=== PATIENT | female | born 1995 | race Caucasian/White ===

== ENCOUNTER 2016-08-26 22:32 | Inpatient (IN) | payer SELFPAY ==
[~2016-08-26] VITALS: Ht 162.6 cm; Wt 85.2 kg
[~2016-08-26 22:32] MED LIST: PREN1TAB49 PO
[2016-08-26 23:06] VITALS: Ht 162.6 cm; Wt 85.2 kg
[2016-08-26 23:09] VITALS: BP 118/68; PULSE 88; RESP 18
[2016-08-26] MEDS ORDERED: LACTATED RINGER'S 1,000 ML IV ONE (23:30)
--- NOTE | 2016-08-26 23:58 | HP ---
Date/Time of Note Date/Time of Note DATE: 08/26/16 TIME: 23:57 OB - History Hx of Present Free Text/Dictation @ 38+3 wks GA with occasional CTXs in intermediate Currently No physician No LOF +FM No VB : 3 Para: 1 Care: Limited Care Obstetrical Complications: None Medical Complications: None Past Family/Social History * Past Medical, Surgical, Family and Obstetric Histories reviewed from chart. OB Admission Exam Vital Signs Vital Signs Vital Signs Date Time Temp Pulse Resp B/P Pulse Ox O2 Delivery O2 Flow Rate FiO2 08/26/16 23:09 98.3 88 18 118/68 Room Air Physical Exam Abdomen: WNL Extremities: Normal Cervical Dilatation: 1cm Effacement: 25% Station: Ballotable Membranes: Intact Heart Rate: 140's Accelerations: Accelerations Present Decelerations: No Decelerations Varibility: Moderate Contractions on Admission: >10 Minutes Apart OB Assessment/Plan Reason for admission: observation Plan: Expectant Management ISHAN RODRIGUEZ M.D. Aug 26, 2016 23:58
--- NOTE | 2016-08-27 00:09 | RADRPT ---
PROCEDURE: OB ultrasound for biophysical profile CLINICAL INDICATION: Decreased motion. TECHNIQUE: Multiple sonographic images of the gravid uterus performed. The images were reviewed on a PACS workstation. COMPARISON: None FINDINGS: A single live intrauterine is identified with heart rate of 141 bpm. Fet us is in a cephalic presentation. Placenta is located anterior. Biophysical profile: breathing movement = 2/2 tone = 2/2 motion = 2/2 ROSALINE = 2/2 ROSALINE = 10.2 cm. IMPRESSION: 1. Single live intrauterine gestation. 2. Biophysical profile = 8/8. 3. ROSALINE = 10.2 cm. RPTAT: HMVK .Mike Matamoros MD, Date Time Electronically viewed and signed by .Mike Matamoros MD, on 08/27/2016 00:09 .K/
--- NOTE | 2016-08-27 00:16 | RADRPT ---
PROCEDURE: US OB. CLINICAL INDICATION: Contractions. TECHNIQUE: Multiple sonographic images of the pelvis were obtained. Transabdominal imaging only w as performed. The images were reviewed on a PACS workstation. COMPARISON: None. FINDINGS: Single live intrauterine is identified. Cardiac activity is present with 146 beats per mi nute. There is a vertex presentation. Measurements: BPD = 34 weeks 5 days. HC = 37 weeks 0 days AC = 40 weeks 2 days. FL = 38 weeks 6 days. Estimated gestational age of approximately 37 weeks 5 days The estimated date of delivery is 09/11/2016. The EFW = 3608 g which is at the 75th percentile. Limited evaluation of anatomy there is a slightly elevated ratio of the femur length to bipari etal diameter into the head circumference. The placenta is anterior. IMPRESSION: Single live intrauterine gestation of approximately 37 weeks 3 days. Ratio of the femur length to t he by probable diameter head circumference is slightly increased and IUGR cannot be excluded. RPTAT: HMVK .Mike Matamoros MD, Date Time Electronically viewed and signed by .Mike Matamoros MD, on 08/27/2016 00:16 .K/
[2016-08-27] MEDS ORDERED: CARBOPROST 250 MCG INJ IM PRN (01:00)
[2016-08-27] MEDS ORDERED: OXYTOCIN 30 UNITS/LR 500 ML IV PRN (01:00)
[2016-08-27] MEDS ORDERED: MISOPROSTOL 200 MCG TAB PR PRN (01:00)
[2016-08-27] MEDS ORDERED: METHYLERGONOVINE 0.2 MG INJ IM PRN (01:00)
--- NOTE | 2016-08-27 01:50 | TRIAGE ---
OB Triage Datetime Report Generated by CPN: 08/27/2016 01:50 Datetime: 08/27/2016 01:32 Assessment Type: Admission Assessment Maternal Assessment Level of Consciousness: Fully Conscious DTR's/Clonus: DTRs 2+; No Clonus Headache: Denies Blurred Vision: No Respiratory Effort: Unlabored Breath Sounds, Left: Clear and Equal Breath Sounds, Right: Clear and Equal Nausea/Vomiting: Denies RUQ Epigastric Pain: Denies Lower Extremities Edema: Bilateral Lower Extremities Degree: 2+ Upper Extremities Edema: None Degree: None Facial Edema: None Fall Risk Assessment History of Falling: (0) No Secondary Diagnosis: (0) No Ambulatory Aid: (0) Bedrest/Nurse Assist IV Therapy: (0) No Gait: (0) Normal/Bedrest/Immobile Mental Status: (0) Oriented to Own Ability Fall Score: 0 Fall Risk Score Definition: No Risk: No action required Pain Assessment Pain Scale: 4 Pain Presence: Intermittent Pain Type: Contraction Pain Goal: 0 Datetime: 08/27/2016 01:29 Time of Arrival: 08/27/2016 01:29 EGA: 38.4 Arrived By: Ambulatory Arrived From: Home Chief Complaint: DECREASED MOVEMENT, CONTRACTIONS Movement: Decreased Contractions: Denies/Absent Rupture of Membranes: Denies Vaginal Bleeding: None Vaginal Discharge: Denies Recent Sexual Intercouse: Denies Abdominal Trauma: Not Applicable Patient Complaints: Contractions; Cramping Time Provider Notified: 08/26/2016 23:05 Provider Notified: JENNIFER Initial Plan: BPP, EFW, SVE Datetime: 08/27/2016 00:30 Labor Evaluation Frequency: IRREGULAR Monitor Mode: External Duration (sec)2399: 40-60 Quality: Mild Pattern: Normal: <= 5 Contractions in 10 Minutes Resting Tone [place]: Relaxed Heart Rate FHR Baseline Rate: 130 Monitor Mode: External US Variability: Moderate 6-25 bpm Accelerations: 15X15 Decelerations: None Category: Category I Datetime: 08/26/2016 23:39 Vaginal Exam Dilatation (cms): 1.0 Effacement (%): 30 Station: -3 Exam By: BE Datetime: 08/26/2016 23:30 Labor Evaluation Frequency: 6-10 Monitor Mode: External Duration (sec)2399: 50-80 Quality: Mild Pattern: Normal: <= 5 Contractions in 10 Minutes Resting Tone [place]: Relaxed Heart Rate FHR Baseline Rate: 130 Monitor Mode: External US Variability: Moderate 6-25 bpm Accelerations: 15X15 Decelerations: None Category: Category I Datetime: 08/26/2016 22:55 Pain Assessment Pain Scale: 5 Pain Presence: Intermittent Pain Type: Cramping; Contraction Pain Location: Abdomen Datetime: 08/26/2016 22:50 Stage of : OB Triage Assessment Type: Triage Maternal Assessment Level of Consciousness: Fully Conscious DTR's/Clonus: DTRs 2+; No Clonus Headache: Denies Blurred Vision: No Respiratory Effort: Unlabored; Regular Rhythm; Equal Expansion Breath Sounds, Left: Clear and Equal Breath Sounds, Right: Clear and Equal Nausea/Vomiting: Denies RUQ Epigastric Pain: Denies Lower Extremities Edema: None Degree: None Upper Extremities Edema: None Degree: None Facial Edema: None Fall Risk Assessment History of Falling: (0) No Secondary Diagnosis: (0) No Ambulatory Aid: (0) Bedrest/Nurse Assist IV Therapy: (0) No Gait: (0) Normal/Bedrest/Immobile Mental Status: (0) Oriented to Own Ability Fall Score: 0 Fall Risk Score Definition: No Risk: No action required Monitor Mode: External Monitor Mode: External US
[2016-08-27 02:41] LABS: HAAIG REFLEX REFLEX FILED
[2016-08-27 02:51] LABS: BASOPHILS % 0.1 % (0.0-2.0); EOSINOPHILS % 0.4 % (0.0-7.0); HEMATOCRIT 38.7 % (37.0-47.0); LYMPHOCYTES # 1.8 10^3/ul (0.8-2.9); LYMPHOCYTES % 17.2 % (15.0-51.0); MEAN CORPUSCULAR HEMOGLOBIN 31.1 pg (29.0-33.0); MEAN CORPUSCULAR HGB CONC 33.5 g/dl (32.0-37.0); MEAN CORPUSCULAR VOLUME 92.8 fl (82.0-101.0); MEAN PLATELET VOLUME 9.6 fl (7.4-10.4); MONOCYTE # 0.6 10^3/ul (0.3-0.9); MONOCYTES % 6.1 % (0.0-11.0); NEUTROPHIL # 7.9 10^3/ul (1.6-7.5); NEUTROPHILS % 76.2 % (39.0-77.0); PLATELET COUNT 231 10^3/UL (140-440); RED BLOOD COUNT 4.17 10^6/ul (4.20-5.40); RED CELL DISTRIBUTION WIDTH 13.3 % (11.5-14.5); UNCORRECTED WBC 10.4 10^3/ul (4.8-10.8); WHITE BLOOD COUNT 10.4 10^3/ul (4.8-10.8)
[2016-08-27 02:53] LABS: INR 0.89; PT RATIO 0.9
[2016-08-27 02:54] LABS: PARTIAL THROMBOPLASTIN TIME 25.3 Sec (25.0-35.0)
[2016-08-27 02:56] LABS: CONDITION 1
[2016-08-27] MEDS ORDERED: LACTATED RINGER'S 1,000 ML IV SCH (03:44)
[2016-08-27] MEDS ORDERED: CEFAZOLIN 2 GM/50 ML (PMX) 50 ML IV SCH (04:00)
[2016-08-27] MEDS ORDERED: OXYTOCIN 30 UNITS/LR 500 ML IV SCH (04:00)
[2016-08-27 07:04] LABS: HEPATITIS B CORE ANTIBODY NEGATIVE (NEGATIVE)
--- NOTE | 2016-08-27 08:38 | HP ---
Date/Time of Note Date/Time of Note DATE: 08/27/16 TIME: 08:25 OB - History Hx of Present Free Text/Dictation Levon is a 21 years old TAB x 2 with history of section x 1 and IUP at 38 weeks and 4 days and are at [facility], presented with contractions. she had been observed overnight and noted her contractions resolved. She was comfortable and had rare occasinal contractions and did not show any evidence of labor. she was therefore discharged and scheduled for repeat section at 39 weeks on Thursday08/30/2016. Patient has limited care. Her NIURKA:09/06/2016 She reported history of section due to macrosomia. Her GDM testing in current negative and HbA1c : 5.7 which is WNL. Review of her records shows that she has been positive for Hepatitis C Antibody. 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 she reports this history since age 14 even prior to using IV drugs. Her RIBA test ordered and currently pending. Her Hepatitis C viral load was negative on 01/2016. She reports she had been smoked cigarettes prior to and stopped since she conceived she had been in [facility] due to violation probation, but has been released for the past 4 days. Had care at [facility]. Review of her labs shows that she has been treated for chlamydia x 2 in current . She had all her care in [facility] since 6 weeks . GDM testing negative. Her Ultrasound today shows EFW: 3608. 75 % , BPP 8/8. ROSALINE: 10.2 EGA: 37 weeks and 5 days with correlate with her NIURKA Estimated Due Date: Sep 06, 2016 : 3 Para: 1 Care: Good Care Obstetrical Complications: Other (History of section due to macrosomia. Postive Hep C antibody.) Past Family/Social History * Past Medical, Surgical, Family and Obstetric Histories reviewed from chart. Blood Type: O+ Rubella: not immune RPR/VDRL: Negative GBS Status: Negative HBsAG: Negative OB Admission Exam Vital Signs Vital Signs Vital Signs Date Time Temp Pulse Resp B/P Pulse Ox O2 Delivery O2 Flow Rate FiO2 08/26/16 23:09 98.3 88 18 118/68 Room Air Physical Exam HEENT: WNL Heart: Rhythm Normal Lungs: Clear Abdomen: WNL Extremities: Normal Reflexes: Normal Cervical Dilatation: None Effacement: 0% Station: -3 Membranes: Intact Heart Rate: 130's Accelerations: Accelerations Present Decelerations: No Decelerations Varibility: Moderate Contractions on Admission: >10 Minutes Apart Last 72 hours Lab Results CBC & BMP 08/27/16 01:18 OB Assessment/Plan Other Assessment: IUP at 38 weeks and 4 days History of section x 1 Currently not in labor GBS negative No evidence of PROM or labor History of Heptatis C, RIBA test pending., prior Hep C Antibody in 01/2016 Negative History of chlamydia x 2, s/.p treatment, Urine Gc/ Chlamydia ordered. pending Will be discharged home To schedule at 39 weeks for repeat section risks and benefits of section including risk for infection, bleeding, damage to adjacent structures including bowel and bladder and risk of damge to fetus as well as risk for blood transfusion including Blood borne infection, including HIV, hepatitis B and C and transfusion reactions discussed with the patient, Patient desires to proceed with repeat section. Recommended Tdap as well as Hepatits B and A vaccine, Desires to receive them after delivery Hepatitis Labs ordered for evaluation of liver function as well as Repeat Hepatitis C labs all questions were answered to the patient's best satisfaction. BLESSING RECINOS MD Aug 27, 2016 08:38
[2016-08-27 10:51] LABS: BARBITURATES NEGATIVE (NEGATIVE); BENZODIAZEPINES NEGATIVE (NEGATIVE); CANNABINOIDS NEGATIVE (NEGATIVE); COCAINE NEGATIVE (NEGATIVE); OPIATES NEGATIVE (NEGATIVE)
--- NOTE | 2016-09-10 20:08 | DS ---
Date/Time of Note Date/Time of Note DATE: 09/10/16 TIME: 20:06 Discharge Summary Admission/Discharge Info Admit Date/Time Aug 26, 2016 at 23:45 Discharge Date/Time Aug 27, 2016 at 10:00 Final Diagnosis False labor Patient Condition: Good Consults Obstetrics Procedures Observation Hx of Present Illness Levon is a 21 years old TAB x 2 with history of section x 1 and IUP at 38 weeks and 4 days and are at [facility], presented with contractions. she had been observed overnight and noted her contractions resolved. She was comfortable and had rare occasional contractions and did not show any evidence of labor. she was therefore discharged and scheduled for repeat section at 39 weeks on Thursday08/30/2016. Patient has limited care. Her NIURKA:09/06/2016 She reported history of section due to macrosomia. Her GDM testing in current negative and HbA1c : 5.7 which is WNL. Review of her records shows that she has been positive for Hepatitis C Antibody. 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 she reports this history since age 14 even prior to using IV drugs. Her RIBA test ordered and currently pending. Her Hepatitis C viral load was negative on 01/2016. She reports she had been smoked cigarettes prior to and stopped since she conceived she had been in senior living due to violation probation, but has been released for the past 4 days. Had care at [facility]. Review of her labs shows that she has been treated for chlamydia x 2 in current . She had all her care in [facility] since 6 weeks . GDM testing negative. Her Ultrasound today shows EFW: 3608. 75 % , BPP 8/8. ROSALINE: 10.2 EGA: 37 weeks and 5 days with correlate with her NIURKA Hospital Course Unremarkable Home Meds No Active Prescriptions or Reported Meds Follow-up Plan In 3 days scheduled for repeat section at 39 weeks BLESSING RECINOS MD Sep 10, 2016 20:08
== END 2016-08-27 10:00 | disposition home or self-care (01) | DRG 782 ==
LOC: OBT 22:32 → L-D 22:33 → UNDOADMIN 23:45 → OBT 23:45 → L-D 08-27 00:35 → UNDODISIN 08-27 10:00
PROVIDERS: ADMIT Obstetrics & Gynecology; ATTEND Obstetrics & Gynecology
DX: O34.219 Maternal care for unspecified type scar from previous cesarean delivery (principal); Z86.19 Personal history of other infectious and parasitic diseases; Z3A.38 38 weeks gestation of pregnancy; Z87.891 Personal history of nicotine dependence
CPT/HCPCS: 76815; 76818; 80307; 83036; 85025; 85610; 85730; 86592; 86704; 86709; 86803; 86850; 86900; 86901; 87340; 87591; G0463; J7120

== ENCOUNTER 2016-08-29 10:37 | Inpatient (IN) | payer SELFPAY ==
[~2016-08-29] VITALS: Ht 162.6 cm; Wt 85.6 kg
[2016-08-29 10:59] VITALS: Ht 162.6 cm; Wt 85.6 kg
[2016-08-29] MEDS ORDERED: MISOPROSTOL 200 MCG TAB PR PRN ×2 (11:30→19:00)
[2016-08-29] MEDS ORDERED: CARBOPROST 250 MCG INJ IM PRN ×2 (11:30→19:00)
[2016-08-29] MEDS ORDERED: CEFAZOLIN 2 GM/50 ML (PMX) 50 ML IV SCH (11:30)
[2016-08-29] MEDS ORDERED: METHYLERGONOVINE 0.2 MG INJ IM PRN ×2 (11:30→19:00)
[2016-08-29] MEDS ORDERED: OXYTOCIN 30 UNITS/LR 500 ML IV SCH (11:30)
[2016-08-29] MEDS ORDERED: OXYTOCIN 30 UNITS/LR 500 ML IV PRN ×2 (11:30→19:00)
[2016-08-29] MEDS: LACTATED RINGER'S 1,000 ML IV SCH ×3 (11:46→21:09)
[2016-08-29 12:06] LABS: BASOPHILS % 0.3 % (0.0-2.0); EOSINOPHILS % 0.2 % (0.0-7.0); HEMATOCRIT 38.3 % (37.0-47.0); HEMOGLOBIN 12.7 g/dl (12.0-16.0); LYMPHOCYTES # 1.3 10^3/ul (0.8-2.9); MEAN CORPUSCULAR HEMOGLOBIN 31.3 pg (29.0-33.0); MEAN CORPUSCULAR HGB CONC 33.1 g/dl (32.0-37.0); MEAN CORPUSCULAR VOLUME 94.3 fl (82.0-101.0); MONOCYTE # 0.4 10^3/ul (0.3-0.9); MONOCYTES % 4.6 % (0.0-11.0); NEUTROPHIL # 7.6 10^3/ul (1.6-7.5); NEUTROPHILS % 80.9 % (39.0-77.0); PLATELET COUNT 224 10^3/UL (140-440); RED BLOOD COUNT 4.06 10^6/ul (4.20-5.40); RED CELL DISTRIBUTION WIDTH 13.6 % (11.5-14.5); UNCORRECTED WBC 9.4 10^3/ul (4.8-10.8); WHITE BLOOD COUNT 9.4 10^3/ul (4.8-10.8)
[2016-08-29 12:19] LABS: CONDITION 1
[2016-08-29 12:22] LABS: INR 0.89; PARTIAL THROMBOPLASTIN TIME 27.7 Sec (25.0-35.0); PT RATIO 0.9
[2016-08-29 12:44] LABS: BARBITURATES Negative (NEGATIVE); BENZODIAZEPINES Negative (NEGATIVE); CANNABINOIDS Negative (NEGATIVE); OPIATES Negative (NEGATIVE)
[2016-08-29 13:11] LABS: COCAINE Negative (NEGATIVE)
[2016-08-29] MEDS ORDERED: CITRIC ACID/NA CITRATE 30 ML CUP ONE (14:51)
[2016-08-29] MEDS ORDERED: morphine SULFATE/PF (10 MG/10 ML) INJ ONE (14:52)
[2016-08-29] MEDS ORDERED: FENTAnyl 50 MCG/ML VIAL ONE (14:52)
[2016-08-29] MEDS ORDERED: EPHEDrine SULFATE 50 MG/5 ML SYG ONE (15:04)
[2016-08-29] MEDS ORDERED: HYDROmorphONE 1 MG/ML SYG IV PRN ×3 (15:30)
[2016-08-29] MEDS ORDERED: ZOLPIDEM 5 MG TAB PO PRN (15:30)
[2016-08-29] MEDS ORDERED: NALOXONE (0.4 MG/ML) INJ IV PRN ×2 (15:30→21:30)
[2016-08-29] MEDS ORDERED: ONDANSETRON 4 MG INJ IV PRN (15:30)
--- NOTE | 2016-08-29 15:49 | HP ---
Date/Time of Note Date/Time of Note DATE: 08/29/16 TIME: 15:48 OB - History Hx of Present Free Text/Dictation 21 yo @38+6 wks GA ,poor care ,in labor Previous c/section : 3 Para: 1 Care: Good Care Ultrasounds: Normal mid trimester US Obstetrical Complications: None Medical Complications: None Past Family/Social History * Past Medical, Surgical, Family and Obstetric Histories reviewed from chart. OB Admission Exam Physical Exam Abdomen: WNL Extremities: Normal Reflexes: Normal Cervical Dilatation: 2cm Effacement: 75% Station: -1 Membranes: Intact Heart Rate: 140's Accelerations: Accelerations Present Decelerations: No Decelerations Varibility: Moderate Contractions on Admission: 6-10 Minutes Apart Last 72 hours Lab Results CBC & BMP 08/29/16 11:45 OB Assessment/Plan Reason for admission: section Plan: Section Other plan: 21 yo @38+6 wks GA ,poor care ,in labor Previous c/section ISHAN RODRIGUEZ M.D. Aug 29, 2016 15:49
[2016-08-29 16:32] LABS: CANNABINOIDS Negative (NEGATIVE)
[2016-08-29 16:41] LABS: BARBITURATES Negative (NEGATIVE); BENZODIAZEPINES Negative (NEGATIVE); COCAINE Negative (NEGATIVE); OPIATES Negative (NEGATIVE)
[2016-08-29 19:00] VITALS: BP 114/69; PULSE 99; RESP 18
[2016-08-29] MEDS ORDERED: NA PHOSPHATE/BIPHOS 133 ML ENEMA PR PRN (19:00)
[2016-08-29 19:30] VITALS: BP 108/57; PULSE 80; RESP 19
[2016-08-29 20:00] VITALS: BP 110/69; PULSE 62; RESP 20
[2016-08-29 21:00] VITALS: BP 105/63; PULSE 65; RESP 19
[2016-08-29] MEDS: SENNA/DOCUSATE NA (8.6MG/50MG) TAB PO SCH (21:09)
[2016-08-29] MEDS ORDERED: DIPHENHYDRAMINE 50 MG INJ IM PRN (21:30)
[2016-08-29] MEDS ORDERED: DIPHENHYDRAMINE 50 MG INJ IV PRN (21:30)
[2016-08-29] MEDS: DIPHENHYDRAMINE 50 MG INJ IV PRN (21:33)
[2016-08-30] MEDS: DIPHENHYDRAMINE 50 MG INJ IV PRN (03:30)
[2016-08-30 04:00] VITALS: BP 106/63; PULSE 89; RESP 19
[2016-08-30] MEDS: LACTATED RINGER'S 1,000 ML IV SCH ×3 (04:56→18:10)
[2016-08-30 07:17] LABS: BASOPHILS % 0.3 % (0.0-2.0); EOSINOPHILS % 0.4 % (0.0-7.0); HEMATOCRIT 32.6 % (37.0-47.0); HEMOGLOBIN 10.9 g/dl (12.0-16.0); LYMPHOCYTES # 1.4 10^3/ul (0.8-2.9); LYMPHOCYTES % 13.8 % (15.0-51.0); MEAN CORPUSCULAR HEMOGLOBIN 31.9 pg (29.0-33.0); MEAN CORPUSCULAR HGB CONC 33.6 g/dl (32.0-37.0); MEAN CORPUSCULAR VOLUME 94.9 fl (82.0-101.0); MONOCYTE # 0.5 10^3/ul (0.3-0.9); NEUTROPHIL # 8.1 10^3/ul (1.6-7.5); NEUTROPHILS % 80.5 % (39.0-77.0); PLATELET COUNT 159 10^3/UL (140-440); RED BLOOD COUNT 3.43 10^6/ul (4.20-5.40); RED CELL DISTRIBUTION WIDTH 13.9 % (11.5-14.5)
[2016-08-30 07:40] LABS: CONDITION 1
[2016-08-30] MEDS: SENNA/DOCUSATE NA (8.6MG/50MG) TAB PO SCH ×2 (09:00→21:38)
[2016-08-30 09:35] VITALS: BP 98/52; PULSE 67; RESP 18
--- NOTE | 2016-08-30 10:24 | PN ---
Date/Time of Note Date/Time of Note DATE: 08/30/16 TIME: 10:18 OB Subjective Subjective Subjective 08-30-2016 Progress note for post day 1; Patient is doing fairly well, mostly sleepy No complaint. Ambulatory She is afebrile Abdomen is soft , Fundus is firm Moderate amount of lochia Breasts are soft, Nipples are intact No calf tenderness. Incision is healing well. Not breast feeding the new born. New born is doing well. Laboratory Tests Test 08/29/16 11:45 08/29/16 15:45 08/30/16 06:39 Activated Partial Thromboplast Time 27.7Sec Basophils # 0.010^3/ul 0.010^3/ul Basophils % 0.3% 0.3% Eosinophils # 0.010^3/ul 0.010^3/ul Eosinophils % 0.2% 0.4% Hematocrit 38.3% 32.6% Hemoglobin 12.7g/dl 10.9g/dl INR International Normalized Ratio 0.89 Lymphocytes # 1.310^3/ul 1.410^3/ul Lymphocytes % 14.0% 13.8% Mean Corpuscular Hemoglobin 31.3pg 31.9pg Mean Corpuscular Hemoglobin Concent 33.1g/dl 33.6g/dl Mean Corpuscular Volume 94.3fl 94.9fl Mean Platelet Volume 9.0fl 9.0fl Monocytes # 0.410^3/ul 0.510^3/ul Monocytes % 4.6% 5.0% Neutrophils # 7.610^3/ul 8.110^3/ul Neutrophils % 80.9% 80.5% Nucleated Red Blood Cells # 0.010^3/ul 0.010^3/ul Nucleated Red Blood Cells % 0.0/100WBC 0.0/100WBC Platelet Count 09863^3/UL 28748^3/UL Prothrombin Time 12.0Sec Prothrombin Time Ratio 0.9 Rapid Plasma Reagin NONREACTIVE Red Blood Count 4.0610^6/ul 3.4310^6/ul Red Cell Distribution Width 13.6% 13.9% Urine Amphetamines Screen Negative Positive Urine Barbiturates Negative Negative Urine Benzodiazepines Screen Negative Negative Urine Cannabinoids Negative Negative Urine Cocaine Screen Negative Negative Urine Opiates Screen Negative Negative White Blood Count 9.410^3/ul 10.010^3/ul Current Medications Medications (Trade) Dose Ordered Sig/Dilan Route PRN Reason Start Time Stop Time Status Last Admin Dose Admin Lactated Ringer's 1,000 ml @ 125 mls/hr Q8H IV 08/29/16 11:23 08/29/16 19:00 DC 08/29/16 14:26 Cefazolin Sodium/ Dextrose 50 ml @ 100 mls/hr ONCE IV 08/29/16 11:30 08/29/16 19:00 DC Oxytocin/Lactated Ringer's 500 ml @ 125 mls/hr ONCE IV 08/29/16 11:30 08/29/16 19:00 DC 08/29/16 16:19 Oxytocin/Lactated Ringer's 500 ml @ 0 mls/hr ONCE PRN IV For Hemorrhage Management 08/29/16 11:30 08/29/16 19:00 DC Methylergonovine Maleate (Methergine) 0.2 mg ONCE PRN IM VAGINAL BLEEDING 08/29/16 11:30 08/29/16 19:01 DC Carboprost Tromethamine (Hemabate) 250 mcg ONCE PRN IM VAGINAL BLEEDING 08/29/16 11:30 08/29/16 19:01 DC Misoprostol (Cytotec) 1,000 mcg ONCE PRN [place] VAGINAL BLEEDING 08/29/16 11:30 08/29/16 19:01 DC Citric Acid/ Sodium Citrate (Bicitra) 30 ml STK-MED ONCE .ROUTE 08/29/16 14:51 08/29/16 14:52 DC Morphine Sulfate (Duramorph) 10 mg STK-MED ONCE .ROUTE 08/29/16 14:52 08/29/16 14:53 DC Fentanyl (Sublimaze) 100 mcg STK-MED ONCE .ROUTE 08/29/16 14:52 08/29/16 14:53 DC Ephedrine Sulfate 50 mg STK-MED ONCE .ROUTE 08/29/16 15:04 08/29/16 15:05 DC Naloxone HCl (Narcan) 0.1 mg Q2M PRN IV FOR RESP RATE 8 OR LESS 08/29/16 15:30 08/30/16 15:29 Hydromorphone HCl (Dilaudid) 0.2 mg Q3H PRN IV BREAKTHROUGH PAIN 08/29/16 15:30 08/30/16 15:29 Cancel Hydromorphone HCl (Dilaudid) 0.2 mg Q3H PRN IV PAIN LEVEL 1-5 08/29/16 15:30 08/30/16 15:29 Hydromorphone HCl (Dilaudid) 0.4 mg Q3H PRN IV PAIN LEVEL 6-10 08/29/16 15:30 08/30/16 15:29 Ondansetron HCl (Zofran Inj) 4 mg Q6H PRN IV NAUSEA AND/OR VOMITING 08/29/16 15:30 08/30/16 15:29 Zolpidem Tartrate (Ambien) 5 mg HS MAY REPEAT X 1 PRN PO INSOMNIA 08/29/16 15:30 08/30/16 15:29 Miscellaneous Information Duramorph: .2 mg Spi... GIVEN XX 08/29/16 15:30 08/29/16 19:01 DC Lactated Ringer's (Lr) 1,000 ml @ 125 mls/hr Q8H IV 08/29/16 18:54 08/30/16 04:56 Oxycodone/ Acetaminophen (Percocet (5/ 325)) 2 tab Q4H PRN PO PAIN LEVEL 7-10 08/29/16 19:00 Ibuprofen (Motrin) 600 mg Q6 PO 08/30/16 12:00 Simethicone (Mylicon) 160 mg Q8H PRN PO DISTENSION/GAS/BLOATING 08/29/16 19:00 Senna/Docusate Sodium (Senokot-S) 1 tab BID PO 08/29/16 21:00 08/29/16 21:09 Sodium Biphosphate/ Sodium Phosphate (Fleet Enema) 133 ml DAILY PRN [place] CONSTIPATION 08/29/16 19:00 Diphtheria/ Tetanus/Acell Pertussis 0.5 ml 0.5 ml ONCE ONCE IM* 09/01/16 09:00 09/01/16 09:01 Oxytocin/Lactated Ringer's 500 ml @ 0 mls/hr ONCE PRN IV For Hemorrhage Management 08/29/16 19:00 Methylergonovine Maleate (Methergine) 0.2 mg ONCE PRN IM VAGINAL BLEEDING 08/29/16 19:00 Carboprost Tromethamine (Hemabate) 250 mcg ONCE PRN IM VAGINAL BLEEDING 08/29/16 19:00 Misoprostol (Cytotec) 1,000 mcg ONCE PRN [place] VAGINAL BLEEDING 08/29/16 19:00 Diphenhydramine HCl (Benadryl) 25 mg PACU ORDER PRN IV PRURITUS 08/29/16 21:30 08/30/16 01:30 DC Diphenhydramine HCl (Benadryl) 25 mg Q6H PRN IM ITCHING 08/29/16 21:30 08/29/16 21:32 DC Naloxone HCl (Narcan) 0.1 mg Q2M PRN IV FOR RESP RATE 8 OR LESS 08/29/16 21:30 08/30/16 21:29 Diphenhydramine HCl (Benadryl) 25 mg Q6H PRN IV ITCHING 08/29/16 21:30 08/30/16 21:29 08/30/16 03:30 Influenza Virus Vaccine (Fluzone) 0.5 ml ONCE ONCE IM* 08/31/16 09:00 08/31/16 09:01 IVELISSE ORTEGA MD Aug 30, 2016 10:24
[2016-08-30] MEDS ORDERED: PROCHLORPERAZINE 10 MG INJ IV PRN (11:00)
[2016-08-30] MEDS ORDERED: ONDANSETRON 4 MG INJ IV PRN (11:00)
[2016-08-30] MEDS ORDERED: DIPHENHYDRAMINE 50 MG INJ IV PRN (11:00)
[2016-08-30] MEDS ORDERED: ACETAMINOPHEN 325 MG TAB PO PRN (11:00)
[2016-08-30] MEDS ORDERED: KETOROLAC 30 MG INJ IV PRN (11:00)
[2016-08-30] MEDS ORDERED: NALOXONE (0.4 MG/ML) INJ IV PRN (11:00)
[2016-08-30] MEDS: IBUPROFEN 600 MG TAB PO SCH ×3 (12:00→23:44)
[2016-08-30 12:15] VITALS: BP 102/57; PULSE 89; RESP 18
[2016-08-30 16:00] VITALS: BP 110/71; PULSE 81; RESP 18
[2016-08-30] MEDS: OXYCODONE/ACETAMINOPHEN (5/325) TAB PO PRN (18:11)
[2016-08-30 19:45] VITALS: BP 112/66; PULSE 94; RESP 18
[2016-08-31 03:50] VITALS: BP 97/57; PULSE 73; RESP 18
[2016-08-31] MEDS: IBUPROFEN 600 MG TAB PO SCH ×3 (05:45→17:36)
[2016-08-31 08:50] VITALS: BP 111/72; PULSE 69; RESP 19
[2016-08-31] MEDS ORDERED: INFLUENZA VIRUS VACCINE 0.5 ML (DISPENSING) IM* ONE (09:00)
[2016-08-31] MEDS: SENNA/DOCUSATE NA (8.6MG/50MG) TAB PO SCH ×2 (10:24→20:21)
[2016-08-31] MEDS: LACTATED RINGER'S 1,000 ML IV SCH ×3 (10:54→11:31)
[2016-08-31 15:45] VITALS: BP 104/61; PULSE 86; RESP 20
--- NOTE | 2016-08-31 17:02 | PN ---
Date/Time of Note Date/Time of Note DATE: 08/31/16 TIME: 17:02 Assessment/Plan VTE Prophylaxis VTE Prophylaxis Intervention: ambulation Lines/Catheters IV Catheter Type (from Nrsg): Peripheral IV Assessment/Plan Assessment/Plan POD2 pt doing well wound CDI exam wnl vss continue care Exam/Review of Systems Vital Signs Vitals Vital Signs Date Time Temp Pulse Resp B/P Pulse Ox O2 Delivery O2 Flow Rate FiO2 08/31/16 08:50 97.8 69 19 111/72 Room Air 08/30/16 05:40 97 21 Intake and Output 08/30/16 08/30/16 08/31/16 15:00 23:00 07:00 Intake Total 950 ml 802 ml Output Total 2400 ml 2475 ml Balance -1450 ml -1673 ml Results Result Diagram: 08/30/16 0639 Medications Medications Current Medications Lactated Ringer's (Lr) 1,000 ml @ 125 mls/hr Q8H IV Last administered on 12:38; Admin Dose 125 MLS/HR; Start 08/29/16 at 18:54 Oxycodone/ Acetaminophen (Percocet (5/ 325)) 2 tab Q4H PRN PO PAIN LEVEL 7-10 Last administered on 08/30/16 18:11; Admin Dose 2 TAB; Start 08/29/16 at 19:00 Ibuprofen (Motrin) 600 mg Q6 PO Last administered on 08/31/16 12:05; Admin Dose 600 MG; Start 08/30/16 at 12:00 Simethicone (Mylicon) 160 mg Q8H PRN PO DISTENSION/GAS/BLOATING; Start at 19:00 Senna/Docusate Sodium (Senokot-S) 1 tab BID PO Last administered on 08/31/16 10:24; Admin Dose 1 TAB; Start 08/29/16 at 21:00 Sodium Biphosphate/ Sodium Phosphate (Fleet Enema) [address] CONSTIPATION; Start 08/29/16 at 19:00 Diphtheria/ Tetanus/Acell Pertussis 0.5 ml 0.5 ml ONCE ONCE IM* ; Start at 09:00; Stop 09/01/16 at 09:01 Oxytocin/Lactated Ringer's 500 ml @ 0 mls/hr ONCE PRN IV For Hemorrhage Management; Start 08/29/16 at 19:00 Methylergonovine Maleate (Methergine) 0.2 mg ONCE PRN IM VAGINAL BLEEDING; Start 08/29/16 at 19:00 Carboprost Tromethamine (Hemabate) 250 mcg ONCE PRN IM VAGINAL BLEEDING; Start 08/29/16 at 19:00 Misoprostol (Cytotec) 1,[address] VAGINAL BLEEDING; Start 08/29/16 at 19:00 Acetaminophen (Tylenol Tab) 650 mg Q6H PRN PO PAIN AND OR ELEVATED TEMP; Start 08/30/16 at 11:00 CLARICE GONZALEZ MD Aug 31, 2016 17:02
--- NOTE | 2016-08-31 17:06 | PN ---
Date/Time of Note Date/Time of Note DATE: 08/31/16 TIME: 17:05 Assessment/Plan VTE Prophylaxis VTE Prophylaxis Intervention: ambulation Lines/Catheters IV Catheter Type (from Nrsg): Peripheral IV Assessment/Plan Assessment/Plan POD2 pt doing well exam wnl fundus firm cdi continue care Exam/Review of Systems Vital Signs Vitals Vital Signs Date Time Temp Pulse Resp B/P Pulse Ox O2 Delivery O2 Flow Rate FiO2 08/31/16 08:50 97.8 69 19 111/72 Room Air 08/30/16 05:40 97 21 Intake and Output 08/30/16 08/30/16 08/31/16 15:00 23:00 07:00 Intake Total 950 ml 802 ml Output Total 2400 ml 2475 ml Balance -1450 ml -1673 ml Results Result Diagram: 08/30/16 0639 Medications Medications Current Medications Lactated Ringer's (Lr) 1,000 ml @ 125 mls/hr Q8H IV Last administered on 12:38; Admin Dose 125 MLS/HR; Start 08/29/16 at 18:54 Oxycodone/ Acetaminophen (Percocet (5/ 325)) 2 tab Q4H PRN PO PAIN LEVEL 7-10 Last administered on 08/30/16 18:11; Admin Dose 2 TAB; Start 08/29/16 at 19:00 Ibuprofen (Motrin) 600 mg Q6 PO Last administered on 08/31/16 12:05; Admin Dose 600 MG; Start 08/30/16 at 12:00 Simethicone (Mylicon) 160 mg Q8H PRN PO DISTENSION/GAS/BLOATING; Start at 19:00 Senna/Docusate Sodium (Senokot-S) 1 tab BID PO Last administered on 08/31/16 10:24; Admin Dose 1 TAB; Start 08/29/16 at 21:00 Sodium Biphosphate/ Sodium Phosphate (Fleet Enema) 133 ml DAILY PRN [place] CONSTIPATION; Start 08/29/16 at 19:00 Diphtheria/ Tetanus/Acell Pertussis 0.5 ml 0.5 ml ONCE ONCE IM* ; Start at 09:00; Stop 09/01/16 at 09:01 Oxytocin/Lactated Ringer's 500 ml @ 0 mls/hr ONCE PRN IV For Hemorrhage Management; Start 08/29/16 at 19:00 Methylergonovine Maleate (Methergine) 0.2 mg ONCE PRN IM VAGINAL BLEEDING; Start 08/29/16 at 19:00 Carboprost Tromethamine (Hemabate) 250 mcg ONCE PRN IM VAGINAL BLEEDING; Start 08/29/16 at 19:00 Misoprostol (Cytotec) 1,000 mcg ONCE PRN [place] VAGINAL BLEEDING; Start 08/29/16 at 19:00 Acetaminophen (Tylenol Tab) 650 mg Q6H PRN PO PAIN AND OR ELEVATED TEMP; Start 08/30/16 at 11:00 CLARICE GONZALEZ MD Aug 31, 2016 17:06
[2016-08-31] MEDS ORDERED: LORAZEPAM 0.5 MG TAB PO ONE (18:30)
[2016-08-31 19:30] VITALS: BP 110/79; PULSE 81; RESP 18
[2016-08-31] MEDS: OXYCODONE/ACETAMINOPHEN (5/325) TAB PO PRN (23:16)
[2016-09-01 03:58] VITALS: BP 111/71; PULSE 69; RESP 18
[2016-09-01] MEDS: IBUPROFEN 600 MG TAB PO SCH ×3 (05:44→12:00)
[2016-09-01 09:00] VITALS: BP 125/71; PULSE 59; RESP 16
[2016-09-01] MEDS ORDERED: DIPHTH/TET/ACEL PERTUSS (ADULT) 0.5 ML VIAL IM* ONE (09:00)
[2016-09-01] MEDS: SENNA/DOCUSATE NA (8.6MG/50MG) TAB PO SCH (09:03)
[2016-09-01] MEDS: LACTATED RINGER'S 1,000 ML IV SCH (11:59)
[2016-09-01] MEDS: OXYCODONE/ACETAMINOPHEN (5/325) TAB PO PRN (13:02)
--- NOTE | 2016-09-01 13:26 | PD.PPDC ---
[employer] Discharge Instruction Condition Patient Condition: Good Diet Diet: Resume Regular Diet Activity/Restrictions Restrictions: No Exercising No Driving Follow-up Follow-up with Physician: 2, Week/Weeks Provider Information: follow up with your OBGY/NEVC in two weeks Return to clinic for [facility]ELOPMENT CONSULTANT Instructions: Fever greater than 101 OB Instructions: Breast Tenderness Depression Surgical Instructions: Incisional Drainage CLARICE GONZALEZ MD Sep 01, 2016 13:26
--- NOTE | 2016-09-01 13:28 | DS ---
Date/Time of Note Date/Time of Note DATE: 09/01/16 TIME: 13:27 Obstetrical Discharge Record Final Diagnosis Final Diagnosis: Term delivered Section Section: Repeat Primary Indication pt with no PNC pos hep c and Meth Complications No Care, Other Third Trimester Bleeding: Abruptio Condition on Discharge Physical Assessment Voiding: Yes Bowel Movement: Yes Breast: Soft, non-tender Fundus: Firm Calf Tenderness: No Patient Condition: Stable CLARICE GONZALEZ MD Sep 01, 2016 13:28
--- NOTE | 2016-09-01 18:07 | OPR ---
Operative Report Planned Procedure Free Text/Dictation 21 yo @38+6 wks GA ,poor care ,in labor Previous c/section Procedure date Sep 01, 2016 Procedure(s) Repeat c/section Performed by: ISHAN RODRIGUEZ M.D. Assisting provider: GABRIELLA KHAN MD Pre-procedure diagnosis 21 yo @38+6 wks [place] ,poor care ,in labor Previous c/section Anesthesia Type: spinal Procedure Description Under satisfactory [] anesthesia, the patient was prepped and draped and placed in a supine position, tilted to the left. Pfannenstiel incision was made, carried through the subcutaneous tissue. Bleeders brought under control with electrocautery. Fascia incised to the length of the incision. Rectus muscles from the fascia, divided midline. Peritoneum exposed, entered through a transverse incision. Exploration of abdomen revealed gravid uterus. Bladder flap was developed. Transverse incision was made in the lower segment of the uterus. Amniotic sac ruptured. [] amniotic fluid noted. [] Nasal oropharyngeal suction was performed. The baby was handed to the team for immediate attention. The placenta was delivered manually intact. Uterine cavity was cleaned with wet sponge and drainage established. Uterus closed in 2 layers using [] in continuous fashion. Peritoneal cavity irrigated with warm saline. Sponge, needle and instrument count reported to be correct. Abdominal peritoneum closed with [] continuously. Rectus muscle approximated with []. Fascia closed with 0 loop PDS, and skin closed with dermoband. Estimated blood loss [600]mL. Urine bag contained []mL of urine Post-Procedure Findings: Live Baby [], Apgars [] and [], weight [], position [], [] presentation []cord. Complications: None Pt Condition post procedure: stable Disposition: PACU Physician Certification I, the undersigned physician, hereby certify that I have discussed the procedure described in this consent form with this patient (or the patient's legal counter sales representative), including: * The risk and benefits of the procedure; * Any adverse reactions that may reasonably be expected to occur; * Any alternative efficacious methods of treatment which may be medically viable ; * The potential problems that may occur during recuperation; * Potential for blood transfusion and associated risks/benefits; and * Any research or economic interest I may have regarding this treatment. I further certify that the patient/legally responsible person was encouraged to ask question and that all questions were answered. ISHAN RODRIGUEZ M.D. Sep 01, 2016 18:07
--- NOTE | 2016-09-01 18:07 | QN ---
Documentation Comment THE DATE OF REPEAT C/SECTION 08/29/2016 ISHAN RODRIGUEZ M.D. Sep 01, 2016 18:07
== END 2016-09-01 17:40 | disposition home or self-care (01) | DRG 766 ==
LOC: OBT 10:37 → L-D 10:38 → OBT 11:27 → L-D 11:28 → PP1 18:55
PROVIDERS: ADMIT Obstetrics & Gynecology; ATTEND Obstetrics & Gynecology
PROC: 10D00Z1 Extraction of Products of Conception, Low, Open Approach (ICD-10-PCS; principal; 2016-09-01)
PROC: 3E00X4Z Introduction of Serum, Toxoid and Vaccine into Skin and Mucous Membranes, External Approach (ICD-10-PCS; 2016-09-01)
DX: O34.211 Maternal care for low transverse scar from previous cesarean delivery (principal); Z23 Encounter for immunization; Z3A.38 38 weeks gestation of pregnancy; Z37.0 Single live birth
CPT/HCPCS: 80307; 85025; 85610; 85730; 86592; 90686; 90715; 94760; 99464; G0463; J0690; J1200; J2274; J2590; J3010; J7120